=== PATIENT | female | born 1970 | race Caucasian/White ===

== ENCOUNTER → 2022-02-02 14:27 | Outpatient (CLI) | payer OTHER, SELFPAY ==
--- NOTE | ~2022-02-02 | CT_ITS ---
EXAMINATION: CT abdomen pelvis wo/w con DATE: 02/02/2022 15:25 INDICATION: Gross hematuria TECHNIQUE: Computed tomography (CT) of the abdomen and pelvis was performed without and subsequently with 130 CC Omnipaque 350 intravenous contrast. Automated exposure control and iterative reconstructi on technique were employed. Exam dose: 2124.88 mGy-cm total exam DLP. COMPARISON: None. FINDINGS: No infiltrate or consolidation at the lung bases. Normal heart size. No pericardial or pleu ral effusion. Small sliding hiatal hernia. Postoperative change of the stomach. Status post cholecystectomy. Status post hysterectomy. Small right hepatic cyst. The liver is otherwise unremarkable. Normal splenic size. No pancreatic mas s lesion, calcification or ductal dilatation. No bile duct dilatation. No adrenal mass lesion is detected. No urinary tract calculus or hydroureteronephrosis. 1.4 cm right renal cyst. No suspicious renal mass lesion is detected. The urinary bladder is unremark able. Multilevel degenerative disc disease, moderate to moderately severe in particular L4-5 and L5-S1. The re is associated mild retrolisthesis at L2-3 and L3-4. Normal appendix. No bowel obstruction, bowel wall thickening, pneumatosis or intraperitoneal free air . Ventral abdominal wall surgical repair. Prominent degenerative changes apophyseal joints, with associated grade 1 anterolisthesis at L5-S1. Bilateral hip osteoarthritis. No suspicious osteolytic or osteoblastic lesions. IMPRESSION: No urinary tract calculus or hydroureteronephrosis 1.47 right renal cyst Small right hepatic cyst Small sliding hiatal hernia Postoperative change of stomach Status post cholecystectomy Status post hysterectomy Reviewed, dictated and finalized at [facility]. Reviewed, dictated and finalized at [facility]. R MECHANIC
--- NOTE | ~2022-02-02 | XR_ITS ---
XR abdomen/kub 1V 02/02/2022 15:30 INDICATION: Breast hematuria TECHNIQUE: KUB COMPARISON: CT dated 02/02/2022 FINDINGS: Bowel gas pattern is normal. There is no evidence of free air, mass, organomegaly, ascites or obstruction. No abnormal calculi are seen. The bones appear intact. There is contrast in nondil ated bilateral renal collecting systems and ureters which are unremarkable. Renal contour is unremark able bilaterally. Bladder is opacified with contrast. Moderate colonic fecal loading. IMPRESSION: 1: No acute abdominal abnormality identified. Reviewed, dictated and finalized at location [facility]. CHMENT ASSISTANT
[2022-02-02 14:58] LABS: Estimated Glomerular Filt Rate > 60
== END ==
PROVIDERS: PCP Family Medicine; Visit Provider Nurse Practitioner Family
DX: R31.0 Gross hematuria (principal); N28.1 Cyst of kidney, acquired; K76.89 Other specified diseases of liver; K44.9 Diaphragmatic hernia without obstruction or gangrene
CPT/HCPCS: 74018; 74178; Q9967